=== PATIENT | male | born 1960 | race African-American/Black ===

== ENCOUNTER 2019-04-27 16:04 | Emergency (ER) | payer BC, OTHER ==
--- NOTE | 2019-04-27 16:11 | PDOC ---
Rapid Medical Evaluation Time Seen by Provider: 04/27/19 16:11 Medical Evaluation: Allergies Allergy/AdvReac Type Severity Reaction Status Date / Time No Known Allergies Allergy Verified 01/30/19 10:08 04/27/19 16:11 I performed a brief in-person evaluation of this patient. 58-year-old male with history HTN, reports BP meds recently changed from Losartan to Lisinopril. C/O headache past 3 days unrelieved by Tylenol. Has chronic headaches (see MRI here, 09/2018), but states this is worse. Pertinent physical exam findings: Alert, oriented, no distress. No focal neurologic deficits. BP 143/79. I have ordered the following: None. Patient to proceed to the ED for further evaluation. Discharge Disposition - Diagnosis Headache - Referrals - Patient Instructions - Post Discharge Activity
[2019-04-27 16:14] VITALS: BP 143/79; PULSE 70; TEMP 97.7; BMI 26.4
[2019-04-27] MEDS ORDERED: ACETAMINOPHEN/CAFFEINE/BUTALBITAL 1 TAB PO ONE (16:50)
[2019-04-27] MEDS ORDERED: ACETAMINOPHEN/CAFFEINE/BUTALBITAL 1 TAB ONE (16:58)
--- NOTE | 2019-04-27 17:06 | PDOC ---
History of Present Illness - General Chief Complaint: Headache Stated Complaint: HEADACHE Time Seen by Provider: 04/27/19 16:11 History Source: Patient Exam Limitations: Clinical Condition - History of Present Illness Initial Comments: 04/27/19 17:20 Patient with past medical history of chronic headaches, hypertension presented with complaint of 3-day history of persistent headaches which has not been improving with [id number] Tylenol. Patient was seen by PCP yesterday for symptoms and was referred to neurology due to symptoms been chronic for follow- up with patient report has made appointment for next week. Denies nausea, vomiting, blurry vision, change in vision, dizziness. Patient report was not taking his blood pressure medication for few days due to running out and started taking again 2 days ago. Patient was changed from losartan and blood pressure medication due to recall to lisinopril yesterday by PCP. Denies any other symptoms. Patient had MRI of the head done 6 months ago with normal results Timing/Duration: reports: episodic, other (3 days) Associated Symptoms: reports: denies symptoms. denies: loss of consciousness, ringing in ears, seizures, slurred speech, weakness Past History - Past Medical History Allergies/Adverse Reactions: Allergies Allergy/AdvReac Type Severity Reaction Status Date / Time No Known Allergies Allergy Verified 01/30/19 10:08 Home Medications: Ambulatory Orders Hydrochlorothiazide 1 tab PO DAILY 01/30/19 Losartan Potassium 25 mg PO DAILY 01/30/19 Butalb/Acetaminophen/Caffeine [Fioricet 50-300-40 mg Capsule] 1 each PO Q6H PRN #20 capsule 04/27/19 Anemia: No Asthma: No Cancer: No Cardiac Disorders: No CVA: No COPD: No CHF: Yes Dementia: No Diabetes: No GI Disorders: No Disorders: No HTN: No Hypercholesterolemia: No Liver Disease: No Seizures: No Thyroid Disease: No - Immunization History Immunization Up to Date: No - Psycho Social/Smoking Cessation Hx Smoking History: Never smoked Have you smoked in the past 12 months: No If you are a former smoker, when did you quit?: teenager Information on smoking cessation initiated: No Hx Alcohol Use: No Drug/Substance Use Hx: No Neuro Specific PMHX - Complaint Specific PMHX Glaucoma: No Herniated Disk: No Laminectomy: No Migraine: Yes Multiple Sclerosis: No Neuropathy: No TIA: No Review of Systems - Review of Systems Able to Perform ROS?: Yes Is the patient limited [place]ymra[place] proficient: No Constitutional: No: Chills, Fever, Malaise HEENTM: No: Symptoms Reported, See HPI, Eye Pain, Blurred Vision, Tearing, Recent change in vision, Double Vision, Cataracts, Ear Pain, Ocular Prothesis, Ear Discharge, Nose Pain, Nose Congestion, Tinnitus, Nose Bleeding, Hearing Loss , Throat Pain, Throat Swelling, Mouth Pain, Dental Problems, Difficulty Swallowing, Mouth Swelling, Other Respiratory: No: Symptoms reported, See HPI, Cough, Orthopnea, Shortness of Breath, SOB with Exertion, SOB at Rest, Stridor, Wheezing, Productive cough, Hemoptysis, Other Cardiac (ROS): No: Symptoms Reported, See HPI, Chest Pain, Edema, Irregular Heart Rate, Lightheadedness, Palpitations, Syncope, Chest Tightness, Other ABD/GI: No: Symptoms Reported, See HPI, Nausea, Vomiting : No: Symptoms Reported, Dysuria, Discharge, Frequency, Hematuria, Urgency Musculoskeletal: No: Symptoms Reported Integumentary: No: Symptoms Reported Neurological: Yes: Symptoms reported, Headache. No: Pre-Existing Deficit, Weakness, Dizziness All Other Systems: Reviewed and Negative *Physical Exam - Vital Signs Last Vital Signs Temp Pulse Resp BP Pulse Ox 97.7 F 70 16 143/79 98 04/27/19 16:11 04/27/19 16:11 04/27/19 16:11 04/27/19 16:11 04/27/19 16:11 - Physical Exam 04/27/19 17:07 GENERAL: Well developed, well nourished. Awake and alert. No acute distress. HEENT: Normocephalic, atraumatic. PERRLA, EOMI. No conjunctival pallor. Sclera are non- icteric. Moist mucous membranes. Oropharynx is clear. NECK: Supple. Full ROM. No JVD. Carotid pulses 2+ and symmetric, without bruits. No thyromegaly. No lymphadenopathy. CARDIOVASCULAR: Regular rate and rhythm. No murmurs, rubs, or gallops. Distal pulses are 2+ and symmetric. PULMONARY: No evidence of respiratory distress. Lungs clear to auscultation bilaterally. No wheezing, rales or rhonchi. MUSCULOSKELETAL Normal range of motion at all joints. No bony deformities or tenderness. SKIN: Warm and dry. Normal capillary refill. No rashes. No jaundice. NEUROLOGICAL: Alert, awake, appropriate. Cranial nerves 2-12 intact. No deficits to light touch in face, upper extremities and lower extremities. No motor deficits in the in face, upper extremities and lower extremities. Normoreflexic in the upper and lower extremities. Normal speech. Toes are down-going bilaterally. Gait is normal without ataxia. PSYCHIATRIC: Cooperative. Good eye contact. Appropriate mood and affect. General Appearance: Yes: Nourished, Appropriately Dressed. No: Apparent Distress Medical Decision Making - Medical Decision Making 04/27/19 17:21 Patient with past medical history of chronic headaches, hypertension presented with complaint of 3-day history of persistent headaches which has not been improving with [id number] Tylenol. Patient was seen by PCP yesterday for symptoms and was referred to neurology due to symptoms been chronic for follow- up with patient report has made appointment for next week. Denies nausea, vomiting, blurry vision, change in vision, dizziness. Patient report was not taking his blood pressure medication for few days due to running out and started taking again 2 days ago. Patient was changed from losartan and blood pressure medication due to recall to lisinopril yesterday by PCP. Denies any other symptoms. Patient had MRI of the head done 6 months ago with normal results Clinical exam unremarkable with normal neuro exam. Patient symptoms likely chronic migraines. Patient currently on nortriptyline for headache which report has not been helping. We will give a trial of Fioricet for headache. Reassess after 20 minutes 04/27/19 18:07 Patient reporting improvement with headache or Fioricet. Patient stable for discharge on Fioricet for headaches with neurology follow-up. Patient have a follow-up appointment with neurology in 4 days Discharge - Discharge Information Problems reviewed: Yes Clinical Impression/Diagnosis: Headache Qualifiers: Headache type: unspecified Headache chronicity pattern: chronic headache Intractability: not intractable Qualified Code(s): R51 - Headache Condition: Improved Disposition: HOME - Admission No - Additional Discharge Information Prescriptions: Butalb/Acetaminophen/Caffeine [Fioricet 50-300-40 mg Capsule] 1 each PO Q6H PRN #20 capsule PRN Reason: headache - Follow up/Referral Referrals: Gustavo Ellis MD [Primary Care Provider] - Carolina Finney MD [Staff Physician] - - Patient Discharge Instructions Patient Printed Discharge Instructions: DI for Headache Additional Instructions: Take prescribed medication as prescribed for headaches. Continue with blood pressure medication given to you by primary care. Follow-up with Dr. Finney as scheduled. Follow-up with your primary care in 3 to 5 days if unable to see Dr. Finney soon for reassessment of headache. Come back to emergency room if worsening headache with blurry vision, dizziness, nausea and vomiting - Post Discharge Activity
== END 2019-04-27 18:13 | disposition home or self-care (01) ==
LOC: JERFT 16:04
DX: R51 Headache (principal); I10 Essential (primary) hypertension; Z86.69 Personal history of other diseases of the nervous system and sense organs
CPT/HCPCS: 99281-25

== ENCOUNTER 2020-09-23 04:33 | Day surgery (SDC) | payer BC ==
[2020-09-20 10:28] VITALS: BMI 27.3
[2020-09-23] MEDS ORDERED: ONDANSETRON 4 MG/2 ML VIAL IVPUSH PRN (11:03)
[2020-09-23] MEDS ORDERED: ACETAMINOPHEN 325 MG TABLET (FP) PO PRN (11:03)
[2020-09-23] MEDS ORDERED: oxyCODONE HCL 5 MG TABLET PO PRN (11:03)
[2020-09-23] MEDS ORDERED: PROPOFOL 20 ML ONE (11:04)
[2020-09-23] MEDS ORDERED: MIDAZOLAM HCL 2 MG/2 ML SINGLE DOSE VIAL ONE (11:04)
[2020-09-23] MEDS ORDERED: LACTATED RINGERS SOLUTION 1,000 ML IV SCH (11:15)
[2020-09-23 11:53] VITALS: TEMP 97.3
[2020-09-23 14:15] VITALS: BP 159/88; PULSE 73
== END 2020-09-23 13:30 | disposition home or self-care (01) ==
LOC: JASU-SURG 04:33
PROVIDERS: ATTEND Urology
PROC: 0TF4XZZ Fragmentation in Left Kidney Pelvis, External Approach (ICD-10-PCS; principal; 2020-09-23 11:16)
DX: N20.0 Calculus of kidney (principal)